=== PATIENT | female | born 1980 | race Caucasian/White ===

== ENCOUNTER 2018-12-28 18:48 | Emergency (ER) | payer MEDICAID ==
[~2018-12-28] VITALS: Ht 162.6 cm; Wt 94.3 kg
[~2018-12-28 18:48] MED LIST: ALBU8.5H8 IH; HYDR-4353 PO
[2018-12-28] MEDS ORDERED: ketorolac trometh inj. 60 MG/2 ML VIAL IM ONE (20:35)
[2018-12-28] MEDS ORDERED: acetaminophen 325mg tablet PO ONE (20:35)
[2018-12-28] MEDS ORDERED: ACET-2615 PO (21:15)
[2018-12-28] MEDS ORDERED: IBUP-1984 PO (21:15)
[2018-12-28 21:25] VITALS: BP 133/83
== END 2018-12-28 21:26 | disposition home or self-care (01) ==
LOC: ER 18:49
DX: M54.89 Other dorsalgia (principal); G89.29 Other chronic pain; Z79.899 Other long term (current) drug therapy; Z98.890 Other specified postprocedural states
CPT/HCPCS: 71046; 96372; 99283; J1885

== ENCOUNTER 2020-03-17 08:16 | Emergency (ER) | payer MEDICAID ==
[~2020-03-17] VITALS: Ht 162.6 cm; Wt 109.1 kg
[2020-03-17 08:31] VITALS: BP 125/84
[2020-03-17] MEDS ORDERED: ketorolac trometh. 30mg/ml inj. IM ONE (09:10)
[2020-03-17] MEDS ORDERED: CYCL-1 PO (09:23)
== END 2020-03-17 09:37 | disposition home or self-care (01) ==
LOC: ER 08:17
DX: S39.012A Strain of muscle, fascia and tendon of lower back, initial encounter (principal); S76.012A Strain of muscle, fascia and tendon of left hip, initial encounter; S29.012A Strain of muscle and tendon of back wall of thorax, initial encounter; R51 Headache; G89.29 Other chronic pain; Z98.890 Other specified postprocedural states; Z91.040 Latex allergy status; Z79.899 Other long term (current) drug therapy; V89.2XXA Person injured in unspecified motor-vehicle accident, traffic, initial encounter; Y93.89 Activity, other specified; Y92.410 Unspecified street and highway as the place of occurrence of the external cause; Y99.8 Other external cause status
CPT/HCPCS: 96372; 99283; J1885

== ENCOUNTER 2020-08-09 10:19 | Emergency (ER) | payer MEDICAID ==
[~2020-08-09] VITALS: Ht 162.6 cm; Wt 112.7 kg
[~2020-08-09 10:19] MED LIST changes: +CYCL-1 PO
[2020-08-09] MEDS ORDERED: ipratropium/albuterol 3ml nebule NEB ONE (10:35)
[2020-08-09] MEDS ORDERED: predniSONE 20 mg tablet PO ONE (10:35)
--- NOTE | 2020-08-09 11:03 | NUR ---
Pt ambulated on Room Air and maintained O2 sat mid to high 90s. Pt's HR 110 while ambulating.
[2020-08-09 11:42] LABS: D-DIMER 0.23 MG/L FEU (0-0.50)
[2020-08-09 11:49] LABS: BASOPHILS # (AUTO) 0.1 X10'3 (0-0.2); EOSINOPHILS # (AUTO) 0.2 X10'3 (0-0.9); EOSINOPHILS % (AUTO) 2.4 % (0-6); HEMATOCRIT 40.2 % (35.0-45.0); HEMOGLOBIN 13.7 g/dl (12.0-16.0); LYMPHOCYTES # (AUTO) 1.9 X10'3 (1.1-4.8); LYMPHOCYTES % (AUTO) 28.2 % (21-51); MEAN CORPUSCULAR HEMOGLOBIN 27.6 PG (27.0-31.0); MEAN CORPUSCULAR HGB CONC 34.1 g/dL (33.0-36.5); MEAN PLATELET VOLUME 10.1 FL (7.4-10.4); MONOCYTES # (AUTO) 0.6 X10'3 (0-0.9); MONOCYTES % (AUTO) 8.6 % (2-12); NEUTROPHILS % (AUTO) 58.8 % (42-75); PLATELET COUNT 200 X10'3 (140-440); RED BLOOD COUNT 4.96 X10'6 (4.20-5.60); RED CELL DISTRIBUTION WIDTH 14.2 % (11.5-14.5); WHITE BLOOD COUNT 6.9 X10'3 (4.5-11.0)
[2020-08-09 11:52] LABS: ALANINE AMINOTRANSFERASE 72 U/L (12-78); ALBUMIN 3.5 G/DL (3.4-5.0); ALBUMIN/GLOBULIN RATIO 0.9 (1.1-1.5); ALKALINE PHOSPHATASE 87 IU/L (46-116); ANION GAP 14 (8-16); ASPARTATE AMINO TRANSFERASE 49 U/L (10-37); BILIRUBIN,TOTAL 0.3 MG/DL (0.1-1.0); BLOOD UREA NITROGEN 11 MG/DL (7-18); BUN/CREATININE RATIO 15.3 (6.6-38.0); CALCIUM 8.7 MG/DL (8.5-10.1); CHLORIDE 107 MMOL/L (99-107); CREATININE 0.72 MG/DL (0.40-0.90); GLUCOSE 103 MG/DL (70-104); POTASSIUM 3.3 MMOL/L (3.5-5.1); SODIUM 143 MMOL/L (135-145); TOTAL CARBON DIOXIDE 22.5 MMOL/L (24-32); TOTAL PROTEIN 7.6 G/DL (6.4-8.2); eGFR 89 ML/MIN
[2020-08-09] MEDS ORDERED: PRED20TA PO (12:06)
[2020-08-09] MEDS ORDERED: ALBU8.5H8 INH (12:06)
[2020-08-09 12:24] VITALS: BP 131/88
== END 2020-08-09 12:53 | disposition home or self-care (01) ==
LOC: ER 10:19
DX: R05 Cough (principal); R06.02 Shortness of breath; R53.1 Weakness; Z20.828 Contact with and (suspected) exposure to other viral communicable diseases; G89.29 Other chronic pain; F17.200 Nicotine dependence, unspecified, uncomplicated; Z87.442 Personal history of urinary calculi; Z87.440 Personal history of urinary (tract) infections; Z98.890 Other specified postprocedural states; Z72.89 Other problems related to lifestyle; Z91.040 Latex allergy status; Z79.899 Other long term (current) drug therapy
CPT/HCPCS: 71045; 80053; 83880; 84484; 85025; 85379; 94640; 99284; J7512; 94760

== ENCOUNTER 2021-06-22 16:17 | Emergency (ER) | payer MEDICAID ==
[~2021-06-22] VITALS: Ht 162.6 cm; Wt 113.6 kg
[~2021-06-22 16:17] MED LIST changes: +ALBU8.5H17 IH; +ALBU8.5H17 INH; -ALBU8.5H8 IH
[2021-06-22 16:57] VITALS: BP 120/86
== END 2021-06-22 23:01 | disposition left against medical advice (07) ==
LOC: ER 16:18
DX: R07.9 Chest pain, unspecified (principal); Z53.21 Procedure and treatment not carried out due to patient leaving prior to being seen by health care provider

== ENCOUNTER 2022-09-27 09:59 | Emergency (ER) | payer MEDICAID, OTHER ==
[~2022-09-27] VITALS: Ht 162.6 cm; Wt 115.0 kg
[2022-09-27 10:13] VITALS: BP 139/100
[2022-09-27] MEDS ORDERED: acetaminophen 325mg tablet PO ONE (10:40)
[2022-09-27] MEDS ORDERED: CYCL-1 PO (10:40)
[2022-09-27] MEDS ORDERED: ketorolac trometh inj. 60 MG/2 ML VIAL IM ONE (10:40)
[2022-09-27] MEDS ORDERED: ondansetron 4mg rapidly disintigrating tab PO ONE (10:40)
== END 2022-09-27 11:23 | disposition home or self-care (01) ==
LOC: ER 09:59
DX: M54.50 Low back pain, unspecified (principal); M54.2 Cervicalgia; G89.29 Other chronic pain; V59.9XXA Occupant (driver) (passenger) of pick-up truck or van injured in unspecified traffic accident, initial encounter; Y93.89 Activity, other specified; Y92.89 Other specified places as the place of occurrence of the external cause; Y99.8 Other external cause status
CPT/HCPCS: 96372; 99283; J1885

== ENCOUNTER 2022-11-25 12:49 | Inpatient (IN) | payer MEDICAID ==
[~2022-11-25] VITALS: Ht 162.6 cm; Wt 115.9 kg
[2022-11-25] MEDS ORDERED: normal saline 1000ML IV soln IV ONE (17:10)
[2022-11-25 17:49] LABS: BASOPHILS # (AUTO) 0.1 X10'3 (0-0.2); BASOPHILS % (AUTO) 0.5 % (0-1); EOSINOPHILS # (AUTO) 0.1 X10'3 (0-0.9); EOSINOPHILS % (AUTO) 1.1 % (0-6); HEMATOCRIT 42.9 % (35.0-45.0); HEMOGLOBIN 14.2 g/dl (12.0-16.0); LYMPHOCYTES # (AUTO) 1.4 X10'3 (1.1-4.8); LYMPHOCYTES % (AUTO) 12.4 % (21-51); MEAN CORPUSCULAR HEMOGLOBIN 27.1 PG (27.0-31.0); MEAN CORPUSCULAR VOLUME 82.1 FL (78-98); MEAN PLATELET VOLUME 9.5 FL (7.4-10.4); MONOCYTES # (AUTO) 0.9 X10'3 (0-0.9); MONOCYTES % (AUTO) 7.8 % (2-12); NEUTROPHILS % (AUTO) 78.2 % (42-75); PLATELET COUNT 194 X10'3 (140-440); RED BLOOD COUNT 5.23 X10'6 (4.20-5.60); RED CELL DISTRIBUTION WIDTH 14.5 % (11.5-14.5); WHITE BLOOD COUNT 11.5 X10'3 (4.5-11.0)
[2022-11-25 17:50] LABS: CLARITY,URINE CLOUDY (Clear); COLOR,URINE YELLOW (Yellow); GLUCOSE, URINE NEGATIVE (Neg); KETONES,URINE NEGATIVE (Neg); LEUKOCYTE ESTERASE ,URINE LARGE (Neg); NITRITES, URINE POSITIVE (Neg); OCCULT BLOOD,URINE LARGE (Neg); PH,URINE 7.5 (4.8-8.0); PROTEIN,URINE 100 mg/dl (Neg); UROBILINOGEN,URINE 0.2 E.U/dL (0.2-1.0)
[2022-11-25 17:52] LABS: UA COLLECTION TYPE CLN CATCH MIDSTREAM
[2022-11-25 18:02] LABS: BACTERIA,URINE 2+ /HPF (Neg); RBC,URINE TNTC /HPF (0-2); WBC,URINE TNTC /HPF (0-4)
[2022-11-25 18:03] LABS: SQUAMOUS EPITHELIAL CELL,UR FEW /LPF (FEW); WBC CLUMPS,URINE MANY /HPF (NEGATIVE)
[2022-11-25 18:05] LABS: ALANINE AMINOTRANSFERASE 40 U/L (12-78); ALBUMIN 3.8 G/DL (3.4-5.0); ALBUMIN/GLOBULIN RATIO 0.8 (1.1-1.5); ALKALINE PHOSPHATASE 123 IU/L (46-116); ANION GAP 8 (8-16); ASPARTATE AMINO TRANSFERASE 31 U/L (10-37); BILIRUBIN,TOTAL 0.5 MG/DL (0.1-1.0); BLOOD UREA NITROGEN 8 MG/DL (7-18); BUN/CREATININE RATIO 8.5 (10.0-20.0); CALCIUM 9.2 MG/DL (8.5-10.1); CHLORIDE 101 MMOL/L (99-107); CREATININE 0.94 MG/DL (0.40-0.90); GLUCOSE 109 MG/DL (70-104); POTASSIUM 3.8 MMOL/L (3.5-5.1); SODIUM 135 MMOL/L (135-145); TOTAL CARBON DIOXIDE 26.1 MMOL/L (24-32); TOTAL PROTEIN 8.8 G/DL (6.4-8.2); eGFR 65 ML/MIN
[2022-11-25 18:14] LABS: HCG SERUM QL NEGATIVE
[2022-11-25] MEDS ORDERED: ketorolac trometh. 30mg/ml inj. IV ONE (18:15)
[2022-11-25] MEDS ORDERED: morphine 4 MG/ML inj SYRINge IV PRN (19:05)
[2022-11-25] MEDS ORDERED: ondansetron/PF 4mg/2ml inj IV ONE (19:05)
[2022-11-25] MEDS ORDERED: FLUT1BLS9 IH (19:32)
[2022-11-25] MEDS ORDERED: ALBU17AE26 IH (19:32)
[2022-11-25] MEDS ORDERED: SULF1TAB45 PO (19:32)
[2022-11-25] MEDS ORDERED: [UNRECOGNIZED DRUG - OTHER] PO (19:34)
[2022-11-25] MEDS ORDERED: acetaminophen 325mg tablet PO PRN (19:45)
[2022-11-25] MEDS ORDERED: magnesium Cl slow-release 64mg tablet PO PRN (19:45)
[2022-11-25] MEDS ORDERED: magnesium 4gm in 100ml NS 100 ML IV PRN (19:45)
[2022-11-25] MEDS ORDERED: potassium Cl 40MEQ/1/2NS 520ml 520 ML IV PRN (19:45)
[2022-11-25] MEDS ORDERED: potassium Cl 20 mEq SR tablet PO PRN ×2 (19:45)
[2022-11-25] MEDS ORDERED: CefTRIAXone/D5W-Rocephin 1gm 50 ML IV ONE (19:50)
[2022-11-25] MEDS: K and/or MAG REPLACEMENT MC SCH (20:00)
[2022-11-25] MEDS ORDERED: albuterol 2.5 MG/3 ML nebule NEB PRN (20:02)
[2022-11-25] MEDS: morphine 2 MG/ML inj. syringe IV PRN ×2 (20:45→23:43)
[2022-11-25] MEDS: budesonide 0.5mg/2ml UD nebule IH SCH (21:14)
[2022-11-25] MEDS: normal saline 1000ml 1,000 ML IV SCH (21:56)
[2022-11-26] VITALS (18 sets, daily range): BP systolic 101–146; BP diastolic 63–89
[2022-11-26 02:22] LABS: BASOPHILS % (AUTO) 0.3 % (0-1); EOSINOPHILS # (AUTO) 0.2 X10'3 (0-0.9); EOSINOPHILS % (AUTO) 1.9 % (0-6); HEMATOCRIT 37.1 % (35.0-45.0); HEMOGLOBIN 12.2 g/dl (12.0-16.0); LYMPHOCYTES # (AUTO) 2.3 X10'3 (1.1-4.8); LYMPHOCYTES % (AUTO) 24.2 % (21-51); MEAN CORPUSCULAR HEMOGLOBIN 27.2 PG (27.0-31.0); MEAN CORPUSCULAR HGB CONC 32.9 g/dL (33.0-36.5); MEAN CORPUSCULAR VOLUME 82.6 FL (78-98); MEAN PLATELET VOLUME 10.3 FL (7.4-10.4); MONOCYTES # (AUTO) 1.1 X10'3 (0-0.9); MONOCYTES % (AUTO) 11.4 % (2-12); NEUTROPHILS % (AUTO) 62.2 % (42-75); PLATELET COUNT 159 X10'3 (140-440); RED CELL DISTRIBUTION WIDTH 14.3 % (11.5-14.5); WHITE BLOOD COUNT 9.6 X10'3 (4.5-11.0)
[2022-11-26 02:42] LABS: ALANINE AMINOTRANSFERASE 29 U/L (12-78); ALBUMIN 2.8 G/DL (3.4-5.0); ALBUMIN/GLOBULIN RATIO 0.7 (1.1-1.5); ALKALINE PHOSPHATASE 91 IU/L (46-116); ANION GAP 8 (8-16); ASPARTATE AMINO TRANSFERASE 21 U/L (10-37); BILIRUBIN,TOTAL 0.4 MG/DL (0.1-1.0); BLOOD UREA NITROGEN 8 MG/DL (7-18); BUN/CREATININE RATIO 11.6 (10.0-20.0); CALCIUM 8.2 MG/DL (8.5-10.1); CHLORIDE 106 MMOL/L (99-107); CREATININE 0.69 MG/DL (0.40-0.90); GLUCOSE 97 MG/DL (70-104); MAGNESIUM 2.2 MG/DL (1.5-2.4); POTASSIUM 3.5 MMOL/L (3.5-5.1); SODIUM 138 MMOL/L (135-145); TOTAL CARBON DIOXIDE 24.5 MMOL/L (24-32); TOTAL PROTEIN 6.7 G/DL (6.4-8.2); eGFR > 90 ML/MIN
[2022-11-26] MEDS: morphine 2 MG/ML inj. syringe IV PRN ×4 (03:18→23:47)
[2022-11-26] MEDS: normal saline 1000ml 1,000 ML IV SCH ×2 (05:42→15:45)
--- NOTE | 2022-11-26 07:15 | NUR ---
ASSUMED PT CARE. PT SHOWS NO S/S OF ACUTE DISTRESS. BED LOCKED AND LOW, CALL LIGHT IN REACH. PT HAS NO REQUESTS AT THIS TIME.
[2022-11-26] MEDS: K and/or MAG REPLACEMENT MC SCH ×2 (08:00→20:00)
[2022-11-26] MEDS: CefTRIAXone/D5W-Rocephin 1gm 50 ML IV SCH (08:34)
[2022-11-26] MEDS: budesonide 0.5mg/2ml UD nebule IH SCH ×2 (08:52→19:58)
--- NOTE | 2022-11-26 09:36 | NUR ---
GAVE PT PADS & CHUX, REPORTS SHE STARTED HER PERIOD.
[2022-11-26] MEDS ORDERED: iohexol 300 MG/1 ML 50ml polymer ONE (11:51)
[2022-11-26] MEDS ORDERED: morphine 4 MG/ML inj SYRINge IV PRN (14:05)
[2022-11-26] MEDS ORDERED: acetaminophen 1,000mg/100ml IV 100 ML IV PRN (14:05)
[2022-11-26] MEDS ORDERED: proCHLORperazine 10 MG/2 ml inj IV PRN (14:05)
[2022-11-26] MEDS ORDERED: HYDROmorphone/PF 0.2 MG/ML SYRINGE IV PRN ×2 (14:05)
[2022-11-26] MEDS ORDERED: labetalol 20mg/4ml (5mg/ml) syringe IV PRN (14:05)
[2022-11-26] MEDS ORDERED: ringers solution, lacted 1,000 ML IV SCH (14:05)
[2022-11-26] MEDS ORDERED: ondansetron/PF 4mg/2ml inj IV PRN (14:05)
[2022-11-26] MEDS ORDERED: morphine 2 MG/ML inj. syringe IV PRN (14:05)
[2022-11-26] MEDS ORDERED: hydrALAZINE 20mg/ml inj. IV PRN (14:05)
[2022-11-26] MEDS ORDERED: meperidine/PF 25mg/ml syringe IV PRN (14:05)
[2022-11-26] MEDS ORDERED: midazolam 1 mg/ML 2ml injection ONE (14:21)
[2022-11-26] MEDS ORDERED: fentaNYL/PF 50MCG/1 ML 2ML syringe ONE (14:21)
[2022-11-26] MEDS ORDERED: dexamethasone sod phosphate 4mg/ml inj. ONE (14:33)
[2022-11-26] MEDS ORDERED: propofol inj 20 ML IV ONE (14:33)
[2022-11-26] MEDS ORDERED: LIDOcaine 2% (20mg/ml) 5ml vial ONE (14:33)
--- NOTE | 2022-11-26 14:59 | NUR ---
Received from OR via BED IN STABLE CONDITION , accompanied by Anesthesiologist and CHAIN PERSON report given by CHAIN PERSON AND Anesthesiolgist. Addendum: 11/26/22 at 1602 by Gladis Rojo RN Amended: Links added.
[2022-11-26] MEDS ORDERED: iohexol 300 MG/1 ML 50ml polymer ICATH ONE (15:08)
--- NOTE | 2022-11-26 16:19 | NUR ---
Patient in Recovery room . I have received report from Shanthi RN and had the opportunity to ask questions and assume patient care.
[2022-11-26] MEDS ORDERED: ipratropium/albuterol 3ml nebule NEB PRN (17:30)
[2022-11-26] MEDS ORDERED: albuterol 2.5 MG/3 ML nebule NEB PRN (17:30)
--- NOTE | 2022-11-26 18:42 | NUR ---
Problems reprioritized. Patient report given, questions answered & plan of care reviewed with Macie MERCEDES.
[2022-11-26] MEDS: ondansetron/PF 4mg/2ml inj IV PRN (20:03)
[2022-11-26] MEDS: heparin, porcine 5000 units/ml vial SQ SCH (20:48)
[2022-11-27] MEDS: normal saline 1000ml 1,000 ML IV SCH ×2 (01:45→11:45)
--- NOTE | 2022-11-27 06:28 | NUR ---
Problems reprioritized. Patient report given, questions answered & plan of care reviewed with Miguel MERCEDES. Addendum: 11/27/22 at 0629 by Macie Palma RN Amended: Links added.
--- NOTE | 2022-11-27 06:30 | NUR ---
Patient in room [id number]. I have received report from JASWANT MERCEDES and had the opportunity to ask questions and assume patient care.
[2022-11-27 06:38] LABS: BASOPHILS % (AUTO) 0.5 % (0-1); EOSINOPHILS % (AUTO) 0.1 % (0-6); HEMATOCRIT 39.5 % (35.0-45.0); LYMPHOCYTES # (AUTO) 1.1 X10'3 (1.1-4.8); LYMPHOCYTES % (AUTO) 10.3 % (21-51); MEAN CORPUSCULAR HEMOGLOBIN 27.1 PG (27.0-31.0); MEAN CORPUSCULAR HGB CONC 32.9 g/dL (33.0-36.5); MEAN CORPUSCULAR VOLUME 82.4 FL (78-98); MEAN PLATELET VOLUME 10.2 FL (7.4-10.4); MONOCYTES # (AUTO) 0.7 X10'3 (0-0.9); MONOCYTES % (AUTO) 6.9 % (2-12); NEUTROPHILS # (AUTO) 8.6 X10'3 (1.8-7.7); NEUTROPHILS % (AUTO) 82.2 % (42-75); PLATELET COUNT 177 X10'3 (140-440); RED BLOOD COUNT 4.79 X10'6 (4.20-5.60); RED CELL DISTRIBUTION WIDTH 13.9 % (11.5-14.5); WHITE BLOOD COUNT 10.5 X10'3 (4.5-11.0)
[2022-11-27 07:22] LABS: ALANINE AMINOTRANSFERASE 40 U/L (12-78); ALBUMIN 2.8 G/DL (3.4-5.0); ALBUMIN/GLOBULIN RATIO 0.6 (1.1-1.5); ALKALINE PHOSPHATASE 105 IU/L (46-116); ANION GAP 7 (8-16); ASPARTATE AMINO TRANSFERASE 24 U/L (10-37); BILIRUBIN,TOTAL 0.2 MG/DL (0.1-1.0); BLOOD UREA NITROGEN 10 MG/DL (7-18); BUN/CREATININE RATIO 15.2 (10.0-20.0); CALCIUM 8.9 MG/DL (8.5-10.1); CHLORIDE 105 MMOL/L (99-107); CREATININE 0.66 MG/DL (0.40-0.90); GLUCOSE 123 MG/DL (70-104); MAGNESIUM 2.4 MG/DL (1.5-2.4); POTASSIUM 4.2 MMOL/L (3.5-5.1); SODIUM 139 MMOL/L (135-145); TOTAL CARBON DIOXIDE 27.4 MMOL/L (24-32); TOTAL PROTEIN 7.3 G/DL (6.4-8.2); eGFR > 90 ML/MIN
[2022-11-27] MEDS: budesonide 0.5mg/2ml UD nebule IH SCH (07:28)
[2022-11-27] MEDS: heparin, porcine 5000 units/ml vial SQ SCH (07:45)
[2022-11-27] MEDS: morphine 2 MG/ML inj. syringe IV PRN (07:49)
[2022-11-27] MEDS: CefTRIAXone/D5W-Rocephin 1gm 50 ML IV SCH (07:57)
[2022-11-27] MEDS: K and/or MAG REPLACEMENT MC SCH (08:00)
[2022-11-27] MEDS ORDERED: HYDROcodone/acetaminophen 5mg/325mg tablet PO PRN (11:00)
[2022-11-27] MEDS ORDERED: HYDROcodone/acetaminophen 10/325mg tab PO PRN (11:00)
--- NOTE | 2022-11-27 11:00 | NUR ---
PAGER ID: [phone] MESSAGE: [id number] RE: VERONIKA Belénb CAN WE GET PO PAIN MEDICATION PLEASE CALL Addendum: 11/27/22 at 1101 by Caleb Lin RN Dr Green will put in PO pain medication
[2022-11-27] MEDS: ondansetron/PF 4mg/2ml inj IV PRN (11:19)
[2022-11-27 11:32] VITALS: BP 120/69
[2022-11-27] MEDS ORDERED: fluconazole 150mg tablet PO ONE (13:20)
[2022-11-27] MEDS ORDERED: ACET-1008 PO (14:07)
[2022-11-27] MEDS ORDERED: CIPR-202 PO (15:34)
--- NOTE | 2022-11-27 16:20 | NUR ---
patient IV taken out, and was taped with gauze pad. patient tolerated well. cannula whole and intact upon inspection.
--- NOTE | 2022-11-27 16:40 | NUR ---
Patient discharge home after her stay in the hospital. Patient was educated on returning to the ED if symptoms were to return. Patient expressed verbal understanding of her discharge teaching as well. Patient was told to schedule follow up with urologist in 1 to 2 weeks time and was instructed to follow up with primary in 1 weeks time. Patient expressed verbal understanding of new medications and new dosing times. Patient family in the room during discharge and assisted with taking all patient belongings at discharge. Patient left hospital in private vehicle and will follow up as directed.
== END 2022-11-27 16:50 | disposition home or self-care (01) | DRG 463 ==
LOC: ER 12:50 → ED HOLD 19:47 → SUR 3N 11-26 16:35
PROVIDERS: ADMIT Internal Medicine; ATTEND Family Medicine
PROC: BT1F1ZZ Fluoroscopy of Left Kidney, Ureter and Bladder using Low Osmolar Contrast (ICD-10-PCS; 2022-11-26)
PROC: 0T778DZ Dilation of Left Ureter with Intraluminal Device, Via Natural or Artificial Opening Endoscopic (ICD-10-PCS; principal; 2022-11-26 14:14)
DX: N13.6 Pyonephrosis (principal); K76.0 Fatty (change of) liver, not elsewhere classified; B96.20 Unspecified Escherichia coli [E. coli] as the cause of diseases classified elsewhere; R05.9 Cough, unspecified; G89.29 Other chronic pain; K40.20 Bilateral inguinal hernia, without obstruction or gangrene, not specified as recurrent; K42.9 Umbilical hernia without obstruction or gangrene; K57.30 Diverticulosis of large intestine without perforation or abscess without bleeding; M54.9 Dorsalgia, unspecified; R00.0 Tachycardia, unspecified; J42 Unspecified chronic bronchitis; N20.2 Calculus of kidney with calculus of ureter; Z87.442 Personal history of urinary calculi; Z87.891 Personal history of nicotine dependence; Z91.040 Latex allergy status; Z79.899 Other long term (current) drug therapy
CPT/HCPCS: 36415; 74176; 74420; 80053; 81001; 83735; 84145; 84703; 85025; 87077; 87088; 87186; 94640; 94664; 94668; 94760; 99285; A4618; C2617; G0378; J0696; J1100; J1644; J1885; J2250; J2270; J2405; J2704; J3010; J3490; J7030; J7120; Q9967